=== PATIENT | male | born 2000 | race Caucasian/White ===

== ENCOUNTER 2025-01-27 16:48 | Emergency (ER) | payer OTHER ==
[~2025-01-27] VITALS: Ht 172.7 cm; Wt 78.0 kg
[2025-01-27 16:49] VITALS: TEMP 37.1
[2025-01-27] MEDS: MORPHINE SULFATE 4 MG/ML INJ (FOR IV/IM USE) IV STA (17:39)
[2025-01-27] MEDS: ONDANSETRON HCL 4MG/2ML INJ IV STA (17:39)
[2025-01-27] MEDS: SODIUM CHLORIDE 0.9% 1,000 ML IV ONE (17:39)
[2025-01-27] MEDS: ONDANSETRON HCL 4MG/2ML INJ IV ONE (17:59)
[2025-01-27] MEDS: MORPHINE SULFATE 4 MG/ML INJ (FOR IV/IM USE) IV ONE (17:59)
[2025-01-27] MEDS: ETOMIDATE 2MG/ML 10ML VIAL IV ONE (18:00)
[2025-01-27] MEDS ORDERED: IBUP-2028 MT (18:14)
[2025-01-27 19:00] VITALS: TEMP 98.7; O2SAT 100
[2025-01-27 19:10] VITALS: BP 120/95; PULSE 78; RESP 14; O2SAT 100
== END 2025-01-27 19:30 | disposition home or self-care (01) ==
LOC: ER 16:48
DX: S43.005A Unspecified dislocation of left shoulder joint, initial encounter (principal); X58.XXXA Exposure to other specified factors, initial encounter; Y93.89 Activity, other specified; Y92.89 Other specified places as the place of occurrence of the external cause; Y99.8 Other external cause status
CPT/HCPCS: 99285; 23650; 96360; 73020; 73030; 99152; J3490; J2405; J2270; J7030; L3670